=== PATIENT | male | born 1980 | race Caucasian/White ===

== ENCOUNTER 2017-03-23 12:42 | Emergency (ER) | payer OTHER ==
--- NOTE | 2017-03-23 14:11 | ED ORDER SUMMARY ---
..... Patient: BRITTANIE DARBY OrderSheet [facility] VisitID: [id number] [address] [place] [address] 36y, M Registration Date/Time: 03/23/2017 ORDER SHEET Weight: 92.9 kg (stated) Allergies: No Known Drug Allergy GENERAL ORDERS: MEDICATION ORDERS: Augmentin PO 875 mg (NOW) (13:23 03/23/2017 Noble P.A.-C) (Ack 13:54 Clementina R.N.) Tdap IM 0.5 mL (NOW, per protocol) (13:03/23/2017 Noble P.A.-C) (Ack 13:55 Clementina R.N.) (Cancelled: Treatment not [id number] Yue Mcdaniel.Moisés) IV FLUIDS: ORDER SHEET NOTES: [Electronically signed by Kayley Vera P.A.-C (18:16 03/23/2017)] [Electronically signed by Sharri Corbin R.N. (08:27 03/24/2017)] [Electronically locked/signed by Sharri Corbin R.N. (08:03/24/2017)]
--- NOTE | 2017-03-23 14:11 | ED ORDER SUMMARY ---
..... Patient: BRITTANIE DARBY OrderSheet [facility] VisitID: [id number] [address] [place] [address] 36y, M Registration Date/Time: 03/23/2017 ORDER SHEET Weight: 92.9 kg (stated) Allergies: No Known Drug Allergy GENERAL ORDERS: MEDICATION ORDERS: Augmentin PO 875 mg (NOW) (13:23 03/23/2017 Noble P.A.-C) (Ack 13:54 Clementina R.N.) Tdap IM 0.5 mL (NOW, per protocol) (13:03/23/2017 Noble P.A.-C) (Ack 13:55 Clementina R.N.) (Cancelled: Treatment not [id number] Yue Mcdaniel.Moisés) IV FLUIDS: ORDER SHEET NOTES: [Electronically signed by Kayley Vera P.A.-C (18:16 03/23/2017)] [Electronically signed by Sharri Corbin R.N. (08:27 03/24/2017)] [Electronically locked/signed by Sharri Corbin R.N. (08:03/24/2017)]
--- NOTE | 2017-03-23 14:11 | ED CLINICAL REPORT ---
Clinical Report - Physicians/Mid Levels [facility] [address] [place] [address] 03/23/2017 12:47 Patient: BRITTANIE DARBY Time Seen: 13:24 Mar 23 2017. Arrived- By private vehicle. Historian- patient. HISTORY OF PRESENT ILLNESS Chief Complaint: DOG BITE. Location of injuries- (R. LE/ Posterior THIGH). The animal reportedly appeared well, is up to date on immunizations and can be observed for ten days. Animal control has not been notified. This was an "unprovoked" attack. No skin rash or dizziness. 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 REVIEW OF SYSTEMS No headache. All systems otherwise negative, except as recorded above. PAST HISTORY Tetanus immunization status is up-to-date. SOCIAL HISTORY Smoker- current status unknown. Alcohol use. History of drug use. ADDITIONAL NOTES The nursing notes have been reviewed. PHYSICAL EXAM Vital Signs: 03/23/2017 13:02 BP: 151/88. HR: 92. RR: 18. O2 saturation: 97%. Temp: 98.1 F. Appearance: Alert. No backboard or C-collar. Head: Head normal on inspection. ENT: Ears normal on inspection. Nose normal on inspection. Neck: Normal inspection. No vertebral tenderness. CVS: Heart sounds normal. Pulses normal. Respiratory: Chest normal on inspection. Chest nontender. No chest wall injury. Abdomen: Normal inspection. Back: Normal inspection. No tenderness. No tenderness. Extremities: Right thigh: 3.0 cm laceration located in the posterior aspect of mid thigh. SEE LACERATION PROCEDURE NOTE #1 and #2. Neurovascular intact distally. (two triangle full thickness lacs). No foreign body or deformity. Neuro: Oriented X 3. PROGRESS AND PROCEDURES Laceration Repair: Time: 1315. Location: right thigh. Time-out completed immediately before the procedure. Length: 3 cm. Complexity: simple (local anesthesia used and sutured). Wound depth/shape- linear and involving fascia. Wound is clean. Local anesthesia provided using 1% lidocaine with epi. Subcutaneous closure: 4-0 (6, non absorb). Post-procedure: he is stable and there are no complications. Bleeding is controlled and neuro-vascular status is intact distal to the wound. Dressing applied. Laceration Repair #2: Time: 1315. Time-out completed immediately before the procedure. Location: (LE). Length: 3 cm. Complexity: simple (local anesthesia used and sutured). Wound depth/shape- curved and involving fascia. Wound is clean. Local anesthesia provided using 1% lidocaine. Wound explored and cleansed extensively. Subcutaneous closure: interrupted 4-0 (7 non absorb). Post-procedure: he is stable and there are no complications. Bleeding is controlled and neuro-vascular status is intact distal to the wound. Dressing applied. Course of Care: patient status post a dog bite, family own dog. Patient with a non-bleeding gaping laceration. Good distal range of motion, no signs of tendon are myofascial involvement, area explored, I do not believe there is any fb retained. NO signs of early secondary infection, stated on abx. Tdap up tod ate. . 03/23/2017 14:27 BP: 143/78. HR: 64. RR: 18. O2 saturation: 97%. Temp: 98.4 F. Patient is stable. Symptoms better. Patient/family counseled. Disposition: Discharged. Condition: good. CLINICAL IMPRESSION Dog bite to the right thigh and right lower leg. No superficial bites. Bite does not appear infected. Hypertension. INSTRUCTIONS Protect wound and keep wound area clean. Apply bacitracin twice daily. Sutures should be removed in ten days. (6 and 7 sutures [facility] Address: [address] [place] [id number] ). Prescription Medications: Augmentin 875 mg: take 1 tablet orally every 12 hours for 10 days. No refill. Substitution is permissible. (Electronically signed by Kayley Vera P.A.-C 03/23/2017 18:16)
--- NOTE | 2017-03-23 14:11 | ED NURSING NOTES ---
Clinical Report - Nurses [facility] [address] [place] [address] 03/23/2017 12:47 Patient: BRITTANIE DARBY TRIAGE Triage time 13:Mar 23 2017. Acuity: LEVEL 4. Chief Complaint: DOG BITE. ELAINE COMA SCORE: Porter Coma Scale: 15- eyes open spontaneously (4); best verbal response- oriented x 4 (5); best motor response- obeys commands (6). --13:07 Sharri Corbin R.N. 13:02 03/23/17. BP: 151/88. HR: 92. RR: 18. O2 saturation: 97%. Temp: 98.1 F. Pain level now 3/10. --13:07 Sharri Corbin R.N. Weight: 92.9 kg stated. Height/Length: 73 inches Per Patient. BMI: 27. --13:05 Sharri Corbin R.N. Medications None. --13:06 Sharri Corbin R.N. Allergies No Known Drug Allergy. --13:06 Sharri Corbin R.N. History Arrived by private vehicle. Historian: patient. Location of injuries: right thigh. This occurred just prior to arrival. Circumstances: This was an "unprovoked" attack. ( Patient was throwing a Frisbee and the dog bite him on the back of the thigh. Dog was a mixed boxer.). He has had redness. No difficulty breathing, skin rash, trouble swallowing, itching or dizziness. No fever. Has had no swelling or drainage from wound. The animal reportedly appeared well and is up to date on immunizations. Animal control has been notified (no). 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 PAST MEDICAL HX: No history of diabetes mellitus, hypertension, heart disease or lung disease. No history of immunocompromise. Tetanus status: unknown. Immunizations: up-to-date. SOCIAL HX: Light tobacco smoker (cigarette)- less than 1/2 a pack per day. Regular alcohol use; consumes six beers a day. History of drug use: marijuana. SELF HARM ASSESSMENT: A self harm assessment was performed. The patient answered "no" to the question "Have you recently felt down, depressed, or hopeless?" and "Do you have thoughts of harming or killing yourself?". FALL RISK ASSESSMENT: Fall risk assessment completed. No fall risk identified. NUTRITIONAL RISK ASSESSMENT: The nutritional risk assessment revealed no deficiencies. FUNCTIONAL ASSESSMENT: Functional assessment: no impairments noted. LEARNING NEEDS ASSESSMENT: The learning needs assessment revealed no barriers. ABUSE ASSESSMENT: Abuse assessment: (yes) The patient was asked "Do you feel safe in your home?". SKIN INTEGRITY ASSESSMENT: Skin integrity risk assessment completed. No skin integrity risk identified. --13:07 Sharri Corbin R.N. PROBLEMS: no known problems. ADDITIONAL SURGERIES: no known surgeries. Interventions ID band on patient. --13: Sharri Corbin R.N. PHYSICAL ASSESSMENT Ambulatory to room. GENERAL / NEURO / PSYCH: Alert. Oriented X 4. Appears in no acute distress. HEENT: Pupils equal, round and reactive to light. Head non-tender. RESPIRATORY: Respirations not labored. Breath sounds within normal limits. CVS: Normal heart rate and rhythm. Pulses within normal limits. Capillary refill less than 2 seconds. GI / : Abdomen soft and nontender. EXTREMITIES: Extremities exhibit normal ROM. Neuro-vascular status intact to the extremity. SKIN: ( Two puncture wounds on back of right thigh). --13:08 Sharri Corbin R.N. NURSING PROGRESS NOTES The initial plan of care for this patient includes an assessment with efforts to address patient positioning and appropriate ambient lighting; impairment of the integumentary system. Pulse oximeter and NIBP monitor placed on patient. Reassurance given. Call light placed in reach. Side rails up x 1. Bed placed in lowest position. Brakes of bed on. --13:08 Sharri Corbin R.N. Wound irrigated with 500 mL sterile NS using a high-pressure irrigation system; patient tolerated procedure well. --14:04 Jayjay Marroquin, JINA Tech1. DISPOSITION / DISCHARGE Departure time: :Mar 23 2017. Condition at departure: improved. No learning barriers present. Discharge instructions provided and reviewed with the patient. Reviewed warnings. Reviewed medication(s). Treatments reviewed. Reviewed referrals. Patient verbalized understanding. Written instructions provided in French. The patient was discharged home. He left the Emergency Department ambulatory and via private vehicle. Patient driving. ( Wound dressed and instructions given.). --14:29 Sharri Corbin R.N. 14:27 03/23/17. BP: 143/78. HR: 64. RR: 18. O2 saturation: 97%. Temp: 98.4 F. Pain level now 10. --14:29 Sharri Corbin R.N. Locked/Released at 03/24/2017 8:27 by Sharri Corbin R.N.
--- NOTE | 2017-03-23 14:11 | ED CLINICAL REPORT ---
Clinical Report - Physicians/Mid Levels [facility] [address] [place] [address] 03/23/2017 12:47 Patient: BRITTANIE DARBY Time Seen: 13:24 Mar 23 2017. Arrived- By private vehicle. Historian- patient. HISTORY OF PRESENT ILLNESS Chief Complaint: DOG BITE. Location of injuries- (R. LE/ Posterior THIGH). The animal reportedly appeared well, is up to date on immunizations and can be observed for ten days. Animal control has not been notified. This was an "unprovoked" attack. No skin rash or dizziness. 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 REVIEW OF SYSTEMS No headache. All systems otherwise negative, except as recorded above. PAST HISTORY Tetanus immunization status is up-to-date. SOCIAL HISTORY Smoker- current status unknown. Alcohol use. History of drug use. ADDITIONAL NOTES The nursing notes have been reviewed. PHYSICAL EXAM Vital Signs: 03/23/2017 13:02 BP: 151/88. HR: 92. RR: 18. O2 saturation: 97%. Temp: 98.1 F. Appearance: Alert. No backboard or C-collar. Head: Head normal on inspection. ENT: Ears normal on inspection. Nose normal on inspection. Neck: Normal inspection. No vertebral tenderness. CVS: Heart sounds normal. Pulses normal. Respiratory: Chest normal on inspection. Chest nontender. No chest wall injury. Abdomen: Normal inspection. Back: Normal inspection. No tenderness. No tenderness. Extremities: Right thigh: 3.0 cm laceration located in the posterior aspect of mid thigh. SEE LACERATION PROCEDURE NOTE #1 and #2. Neurovascular intact distally. (two triangle full thickness lacs). No foreign body or deformity. Neuro: Oriented X 3. PROGRESS AND PROCEDURES Laceration Repair: Time: 1315. Location: right thigh. Time-out completed immediately before the procedure. Length: 3 cm. Complexity: simple (local anesthesia used and sutured). Wound depth/shape- linear and involving fascia. Wound is clean. Local anesthesia provided using 1% lidocaine with epi. Subcutaneous closure: 4-0 (6, non absorb). Post-procedure: he is stable and there are no complications. Bleeding is controlled and neuro-vascular status is intact distal to the wound. Dressing applied. Laceration Repair #2: Time: 1315. Time-out completed immediately before the procedure. Location: (LE). Length: 3 cm. Complexity: simple (local anesthesia used and sutured). Wound depth/shape- curved and involving fascia. Wound is clean. Local anesthesia provided using 1% lidocaine. Wound explored and cleansed extensively. Subcutaneous closure: interrupted 4-0 (7 non absorb). Post-procedure: he is stable and there are no complications. Bleeding is controlled and neuro-vascular status is intact distal to the wound. Dressing applied. Course of Care: patient status post a dog bite, family own dog. Patient with a non-bleeding gaping laceration. Good distal range of motion, no signs of tendon are myofascial involvement, area explored, I do not believe there is any fb retained. NO signs of early secondary infection, stated on abx. Tdap up tod ate. . 03/23/2017 14:27 BP: 143/78. HR: 64. RR: 18. O2 saturation: 97%. Temp: 98.4 F. Patient is stable. Symptoms better. Patient/family counseled. Disposition: Discharged. Condition: good. CLINICAL IMPRESSION Dog bite to the right thigh and right lower leg. No superficial bites. Bite does not appear infected. Hypertension. INSTRUCTIONS Protect wound and keep wound area clean. Apply bacitracin twice daily. Sutures should be removed in ten days. (6 and 7 [facility] Address: [address] [place] [id number] ). Prescription Medications: Augmentin 875 mg: take 1 tablet orally every 12 hours for 10 days. No refill. Substitution is permissible. (Electronically signed by Kayley Vera P.A.-C 03/23/2017 18:16)
--- NOTE | 2017-03-24 08:28 | ED DISCHARGE INSTRUCTIONS ---
Patient: BRITTANIE DARBY General Instructions [facility] VisitID: [id number] [place] [address] 36y, M Registration Date/Time: 03/23/2017 Dog bite to the right thigh and right lower leg. No superficial bites. Bite does not appear infected. Hypertension. INSTRUCTIONS Protect wound and keep wound area clean. Apply bacitracin twice daily. Sutures should be removed in ten days. (6 and 7 sutures [facility] or with [facility] Address: [address] [place] [address] ). Prescription Medications: Augmentin 875 mg: take 1 tablet orally every 12 hours for 10 days. No refill. Substitution is permissible. ADDITIONAL INFORMATION Dog Bite If a dog has bitten you and the wound is deep enough to break the skin, an infection may occur. Therefore, you should watch for the warning signs listed below. The doctor may not close the wound completely. This is to allow fluid to drain in the event of an infection. Home Care Watch the wound for signs of infection listed below. In certain types of bites, antibiotics may be prescribed. Begin taking these as soon as possible, as directed until they are all gone. Rabies Prevention If you live in an area where rabies occurs in wild animals, the rabies virus can be passed to cats and dogs. An infected animal can pass the rabies virus to you during a bite. If ahealthy-looking pet dog has bitten you, it should be kept in a secure area for the next 10 days to watch for signs of illness. If the pet world renowned chef and restaurant owner wont cooperate with you, contact the [facility] animal control department (or local law enforcement). If the animal becomes ill or dies days, contact your animal control department at once. The animal must be tested for rabies. If the animal stays healthy for the next 10 days, then there is no danger of rabies in the dog or you. Pets fully vaccinated against rabies (2 shots) are at very low risk for the infection. However, because human rabies is almost always fatal, any biting dog should be kept in confinement for 10 days as an extra precaution. If a stray dog bit you, contact the animal control department. They can provide information on capture, quarantine, and animal rabies testing. If you are unable to locate the animal that bit you in the next 2days, and if rabies exists in your region, you must be evaluated for the rabies vaccine series. Contact your doctor or return here promptly. All animal bites should be reported to the [facility] animal control department. If you were not given a form to fill out, you can report it yourself by calling. Follow Up with your doctor as advised. Most skin wounds heal within 10 days. However, an infection may occur even with proper treatment. Check your woundevery 6 hoursfor 2 days, then at least once a day for the next two days for the signs of infection listed below. Get Prompt Medical Attention if any of the following occur: Signs of infection: Spreading redness Increased pain or swelling Fever of 100.4F (38C) or higher, or as directed by your healthcare provider Colored fluid or pus draining from the wound Headache, confusion, strange behavior, or a seizure (signs of a rabies infection) Amoxicillin Trihydrate, Clavulanate Potassium Oral tablet What is this medicine? AMOXICILLIN; CLAVULANIC ACID (a mox i JEOVANY in; ROBYN chung ic id) is a penicillin antibiotic. It is used to treat certain kinds of bacterial infections. It will not work for colds, flu, or other viral infections. How should I use this medicine? Take this medicine by mouth with a full glass of water. Follow the directions on the prescription label. Take at the start of a meal. Do not crush or chew. If the tablet has a score line, you may cut it in half at the score line for easier swallowing. Take your medicine at regular intervals. Do not take your medicine more often than directed. Take all of your medicine as directed even if you think you are better. Do not skip doses or stop your medicine early. Talk to your sheep farm manager regarding the use of this medicine in children. Special care may be needed. What side effects may I notice from receiving this medicine? Side effects that you should report to your doctor or health health care marketing specialist as soon as possible: allergic reactions like skin rash, itching or hives, swelling of the face, lips, or tongue breathing problems dark urine fever or chills, sore throat redness, blistering, peeling or loosening of the skin, including inside the mouth seizures trouble passing urine or change in the amount of urine unusual bleeding, bruising unusually weak or tired white patches or sores in the mouth or throat Side effects that usually do not require medical attention (report to your doctor or health health care marketing specialist if they continue or are bothersome): diarrhea dizziness headache nausea, vomiting stomach upset vaginal or anal irritation What may interact with this medicine? allopurinol anticoagulants control pills methotrexate probenecid What if I miss a dose? If you miss a dose, take it as soon as you can. If it is almost time for your next dose, take only that dose. Do not take double or extra doses. Where should I keep my medicine? Keep out of the reach of children. Store at room temperature below 25 degrees C (77 degrees F). Keep container tightly closed. Throw away any unused medicine after the expiration date. What should I tell my health care provider before I take this medicine? They need to know if you have any of these conditions: bowel disease, like colitis kidney disease liver disease mononucleosis an unusual or allergic reaction to amoxicillin, penicillin, cephalosporin, other antibiotics, clavulanic acid, other medicines, foods, dyes, or preservatives or trying to get breast-feeding What should I watch for while using this medicine? Tell your doctor or health health care marketing specialist if your symptoms do not improve. Do not treat diarrhea with over the counter products. Contact your doctor if you have diarrhea that lasts more than 2 days or if it is severe and watery. If you have diabetes, you may get a false-positive result for sugar in your urine. Check with your doctor or health health care marketing specialist. control pills may not work properly while you are taking this medicine. Talk to your doctor about using an extra method of control. You have been given the following additional information: Dog Bite Amoxicillin Trihydrate, Clavulanate Potassium Oral tablet (Electronically signed by Kayley Vera P.A.-C 03/23/2017 18:16)
--- NOTE | 2017-03-24 08:28 | ED DISCHARGE INSTRUCTIONS ---
Patient: BRITTANIE DARBY General Instructions [facility] VisitID: [id number] [place] [address] 36y, M Registration Date/Time: 03/23/2017 Dog bite to the right thigh and right lower leg. No superficial bites. Bite does not appear infected. Hypertension. INSTRUCTIONS Protect wound and keep wound area clean. Apply bacitracin twice daily. Sutures should be removed in ten days. (6 and 7 sutures [facility] or with [facility] Address: [address] [place] [address] ). Prescription Medications: Augmentin 875 mg: take 1 tablet orally every 12 hours for 10 days. No refill. Substitution is permissible. ADDITIONAL INFORMATION Dog Bite If a dog has bitten you and the wound is deep enough to break the skin, an infection may occur. Therefore, you should watch for the warning signs listed below. The doctor may not close the wound completely. This is to allow fluid to drain in the event of an infection. Home Care Watch the wound for signs of infection listed below. In certain types of bites, antibiotics may be prescribed. Begin taking these as soon as possible, as directed until they are all gone. Rabies Prevention If you live in an area where rabies occurs in wild animals, the rabies virus can be passed to cats and dogs. An infected animal can pass the rabies virus to you during a bite. If ahealthy-looking pet dog has bitten you, it should be kept in a secure area for the next 10 days to watch for signs of illness. If the pet wheelchair rental clerk wont cooperate with you, contact the [facility] animal control department (or local law enforcement). If the animal becomes ill or dies [id number] days, contact your animal control department at once. The animal must be tested for rabies. If the animal stays healthy for the next 10 days, then there is no danger of rabies in the dog or you. Pets fully vaccinated against rabies (2 shots) are at very low risk for the infection. However, because human rabies is almost always fatal, any biting dog should be kept in confinement for 10 days as an extra precaution. If a stray dog bit you, contact the animal control department. They can provide information on capture, quarantine, and animal rabies testing. If you are unable to locate the animal that bit you in the next 2days, and if rabies exists in your region, you must be evaluated for the rabies vaccine series. Contact your doctor or return here promptly. All animal bites should be reported to the [facility] animal control department. If you were not given a form to fill out, you can report it yourself by calling. Follow Up with your doctor as advised. Most skin wounds heal within 10 days. However, an infection may occur even with proper treatment. Check your woundevery 6 hoursfor 2 days, then at least once a day for the next two days for the signs of infection listed below. Get Prompt Medical Attention if any of the following occur: Signs of infection: Spreading redness Increased pain or swelling Fever of 100.4F (38C) or higher, or as directed by your healthcare provider Colored fluid or pus draining from the wound Headache, confusion, strange behavior, or a seizure (signs of a rabies infection) Amoxicillin Trihydrate, Clavulanate Potassium Oral tablet What is this medicine? AMOXICILLIN; CLAVULANIC ACID (a mox i JEOVANY in; ROBYN chung ic id) is a penicillin antibiotic. It is used to treat certain kinds of bacterial infections. It will not work for colds, flu, or other viral infections. How should I use this medicine? Take this medicine by mouth with a full glass of water. Follow the directions on the prescription label. Take at the start of a meal. Do not crush or chew. If the tablet has a score line, you may cut it in half at the score line for easier swallowing. Take your medicine at regular intervals. Do not take your medicine more often than directed. Take all of your medicine as directed even if you think you are better. Do not skip doses or stop your medicine early. Talk to your prizer hand regarding the use of this medicine in children. Special care may be needed. What side effects may I notice from receiving this medicine? Side effects that you should report to your doctor or health housekeeper caregiver as soon as possible: allergic reactions like skin rash, itching or hives, swelling of the face, lips, or tongue breathing problems dark urine fever or chills, sore throat redness, blistering, peeling or loosening of the skin, including inside the mouth seizures trouble passing urine or change in the amount of urine unusual bleeding, bruising unusually weak or tired white patches or sores in the mouth or throat Side effects that usually do not require medical attention (report to your doctor or health housekeeper caregiver if they continue or are bothersome): diarrhea dizziness headache nausea, vomiting stomach upset vaginal or anal irritation What may interact with this medicine? allopurinol anticoagulants control pills methotrexate probenecid What if I miss a dose? If you miss a dose, take it as soon as you can. If it is almost time for your next dose, take only that dose. Do not take double or extra doses. Where should I keep my medicine? Keep out of the reach of children. Store at room temperature below 25 degrees C (77 degrees F). Keep container tightly closed. Throw away any unused medicine after the expiration date. What should I tell my health care provider before I take this medicine? They need to know if you have any of these conditions: bowel disease, like colitis kidney disease liver disease mononucleosis an unusual or allergic reaction to amoxicillin, penicillin, cephalosporin, other antibiotics, clavulanic acid, other medicines, foods, dyes, or preservatives or trying to get breast-feeding What should I watch for while using this medicine? Tell your doctor or health housekeeper caregiver if your symptoms do not improve. Do not treat diarrhea with over the counter products. Contact your doctor if you have diarrhea that lasts more than 2 days or if it is severe and watery. If you have diabetes, you may get a false-positive result for sugar in your urine. Check with your doctor or health housekeeper caregiver. control pills may not work properly while you are taking this medicine. Talk to your doctor about using an extra method of control. You have been given the following additional information: Dog Bite Amoxicillin Trihydrate, Clavulanate Potassium Oral tablet (Electronically signed by Kayley Vera P.A.-C 03/23/2017 18:16)
--- NOTE | 2017-03-24 08:28 | ED MAR SUMMARY ---
..... Medication Administration Record [facility] [address] [place] [id number] Patient: BRITTANIE DARBY Visit ID: [id number] 36y, M Weight: 92.9 kg Height/Length: 73 in BMI: 27 ALLERGIES: No Known Drug Allergy
--- NOTE | 2017-03-24 08:28 | ED MAR SUMMARY ---
..... Medication Administration Record [facility] [address] [place] [id number] Patient: BRITTANIE DARBY Visit ID: [id number] 36y, M Weight: 92.9 kg Height/Length: 73 in BMI: 27 ALLERGIES: No Known Drug Allergy
--- NOTE | 2017-03-24 08:28 | ED MED RECONCILIATION SUMMARY ---
Patient: BRITTANIE DARBY Medication Reconciliation Report [facility] VisitID: [id number] [address] [place] [address] 36y, M Registration Date/Time: 03/23/2017 Weight: 92.9 kg Height/Length: 73 in. BMI: 27.0 ALLERGIES: No Known Drug Allergy The patient's Home Medications are listed below: NONE. The source(s) of the original Home Medication information: Not obtained. The following Medications were given to the patient in the Emergency Department: None. The following Medications were prescribed to the patient: Augmentin 875 mg: take 1 tablet orally every 12 hours for 10 days. No refill. Substitution is permissible. -- Kayley Vera P.A.-C
--- NOTE | 2017-03-24 08:28 | ED MED RECONCILIATION SUMMARY ---
Patient: BRITTANIE DARBY Medication Reconciliation Report [facility] VisitID: [id number] [address] [place] [address] 36y, M Registration Date/Time: 03/23/2017 Weight: 92.9 kg Height/Length: 73 in. BMI: 27.0 ALLERGIES: No Known Drug Allergy The patient's Home Medications are listed below: NONE. The source(s) of the original Home Medication information: Not obtained. The following Medications were given to the patient in the Emergency Department: None. The following Medications were prescribed to the patient: Augmentin 875 mg: take 1 tablet orally every 12 hours for 10 days. No refill. Substitution is permissible. -- Kayley Vera P.A.-C
== END 2017-03-23 14:25 | disposition home or self-care (01) ==
LOC: ED SRH 12:42
DX: S71.151A Open bite, right thigh, initial encounter (principal); S81.851A Open bite, right lower leg, initial encounter; I10 Essential (primary) hypertension; W54.0XXA Bitten by dog, initial encounter; Y93.9 Activity, unspecified; Y99.9 Unspecified external cause status; Y92.9 Unspecified place or not applicable; Z23 Encounter for immunization